=== PATIENT | male | born 1960 ===

== ENCOUNTER 2024-11-09 08:00 | Outpatient (CLI) | payer OTHER ==
[~2024-11-09] VITALS: Ht 30.5 cm; Wt 5.0 kg
[2024-11-09 09:43] LABS: HEMATOCRIT 47.7 % (39.0-48.0); HEMOGLOBIN 16.1 g/dL (13-16.00); MEAN CELL VOLUME 83.5 fL (80.0-100.00); MEAN CORPUSCULAR HEMOGLOBIN 28.1 pg (27.00-32.0); MEAN CORPUSCULAR HGB CONC 33.7 g/dl (32.0-36.0); PLATELET COUNT 223 K/uL (150-450); RED BLOOD COUNT 5.71 M/uL (4.00-6.00); RED CELL DISTRIBUTION WIDTH 13.4 % (11.5-14.5)
[2024-11-09 09:44] VITALS: BP 147/88
[2024-11-09] MEDS ORDERED: CENTRUM ADULTS1 EACH PO (09:51)
[2024-11-09 10:03] LABS: INR 1.07; PARTIAL THROMBOPLASTIN TIME 28.4 SECONDS (22.0-34.0); PROTHROMBIN TIME 11.6 SECONDS (9.0-11.5)
[2024-11-09 10:34] LABS: CALCIUM 9.1 mg/dL (8.5-10.1); CREATININE SERUM 1.03 mg/dL (0.70-1.30); GFR 72.7; POTASSIUM 4.66 mEq/L (3.5-5.1)
[2024-11-09 10:36] LABS: PH,URINE 6.5 (5.0-8.0); URINE APPEARANCE Cloudy; URINE BILIRRUBIN Negative (NEGATIVE); URINE BLOOD Negative; URINE COLOR Yellow; URINE GLUCOSE Negative (NEGATIVE); URINE KETONE Negative (NEGATIVE); URINE LEUKOCYTE Trace; URINE NITRATE Negative; URINE PROTEIN Negative (NEGATIVE); URINE UROBILINOGEN 0.2 E.U./dl
[2024-11-09 10:40] LABS: URINE BACTERIA 12.2 uL (0.0-1933); URINE EPITHELIAL CELLS 2.2 uL (0.0-38.8)
[2024-11-09 10:41] LABS: URINE CAST 0.14 uL (0.0-1.40)
[2024-11-09 11:27] LABS: RH POSITIVE
== END 2024-11-09 08:01 | disposition home or self-care (01) ==
LOC: RAD 08:00 → SURH 12-07 07:00 → EDSTATUS 12-07 08:15 → SURH 12-07 08:15
PROVIDERS: ATTEND Urology
DX: C61 Malignant neoplasm of prostate (principal)